=== PATIENT | female | born 1955 | race Caucasian/White ===

== ENCOUNTER 2016-10-21 16:24 | Emergency (ER) | payer OTHER ==
[~2016-10-21] VITALS: Ht 157.5 cm; Wt 54.9 kg
[2016-10-21] MEDS ORDERED: traMADol 50mg tab ORAL ONE (17:00)
[2016-10-21 17:34] VITALS: BP 113/60
[2016-10-21] MEDS ORDERED: ACETAMINOPHEN-1 EAC1 ORAL (18:49)
[2016-10-21 19:14] VITALS: BP 111/63
[2016-10-21 19:15] VITALS: BP 111/63
--- NOTE | 2016-10-21 21:46 | Emergency Room Report ---
History of Present Illness General Chief Complaint: Multiple Trauma/Fall Source: Medical Record, Caregiver Present Illness HPI The patient is a 61-year-old female with a history of developmental delay and squamous cell carcinoma presenting for right-sided rib pain and right hip pain after slipping and falling today. Pain is a 10 out of 10 dull ache and does not radiate. Worse with movement and touch. She did not lose consciousness or hit her head. She denies any other symptoms including dizziness, blurred vision , chest pain, shortness of breath, fatigue, hemoptysis, abdominal pain, numbness or tingling Allergies: Coded Allergies: No Known Allergies (Unverified , 10/21/16) Patient History Past Medical History: see triage record Pertinent Family History: none Last Menstrual Period: na Reviewed Nursing Documentation: PMH: Agreed, PSxH: Agreed Nursing Documentation-PMH Past Medical History: No History, Except For Hx Cancer: Yes - squamous cell Hx Gastrointestinal Problems: Yes - gerd History Of Psychiatric Problem: Yes - schizoaffective, depression, mental delay Review of Systems All Other Systems: limited Physical Exam Vital Signs Date Time Temp Pulse Resp B/P Pulse Ox O2 Delivery O2 Flow Rate FiO2 10/21/16 16:36 97.9 71 18 113/60 95 Room Air Sp02 EP Interpretation: reviewed, normal General Appearance: no apparent distress, alert, GCS 15, non-toxic Head: normocephalic, atraumatic Eyes: bilateral eye PERRL, bilateral eye normal inspection ENT: hearing grossly normal, normal pharynx, no angioedema, normal voice Neck: full range of motion, no bony tend, supple/symm/no masses Respiratory: lungs clear, normal breath sounds, no accessory muscle use, no wheezing, speaking full sentences Gastrointestinal: normal bowel sounds, non tender, soft, non-distended, no guarding, no rebound Musculoskeletal: other - 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 Mcnulty is my supervising physician. Patient management was discussed with my supervising physician Diagnostic Impression: Primary Impression: Contusion of hip, right Additional Impression: Contusion of rib on right side Qualified Codes: S20.211A - Contusion of right front wall of thorax, initial encounter ER Course The patient is a 61-year-old female presenting with right rib pain and right pelvic pain after falling Ddx considered include but not limited to sprain/strain, fracture, contusion, pneumothorax, among others PE: head is NC/AT NAD There is tenderness to palpation over the right lateral thoracic ribs. No flail chest. Lungs are clear to auscultation. No ecchymosis There is tenderness to palpation over the right lateral pelvis. Pelvis is stable. Full active range of motion of the right hip. X-ray of the right ribs is unremarkable CT scan of the pelvis is unremarkable The patient is given pain medications and will be discharged. ER precautions are given Other X-Ray Diagnostic Results Other X-Ray Diagnostic Results : X-Ray ordered: R rib pain # of Views/Limited Vs Complete: 4 View, Complete Indication: Pain EP Interpretation: Yes Interpretation: no dislocation, no soft tissue swelling, no fractures Impression: No acute disease Interpreting ER Provider: Dr. Pricila REA Scribe Text I am acting as scribe for my supervising physician. My supervising physician's interpretation of the R rib xrays are there is no fracture, consolidation, no effusion, no acute cardiopulmonary disease, no pneumothorax CT/MRI/US Diagnostic Results CT/MRI/US Diagnostic Results : Imaging Test Ordered: CT pelvis Impression Unremarkable Last Vital Signs Date Time Temp Pulse Resp B/P Pulse Ox O2 Delivery O2 Flow Rate FiO2 10/21/16 19:15 97.9 70 18 111/63 98 Room Air Status: improved Disposition: HOME, SELF-CARE Condition: Improved Scripts Acetaminophen With Codeine (T#3) (TYLENOL #3 TAB*) Y Tab 1 TAB ORAL Q6HR Y for For Pain, #12 TAB Prov: ROSARIO WARREN 10/21/16 Referrals: [facility],REFERRING (PCP) Patient Instructions: Hip Pain, Rib Contusion Additional Instructions: I discussed my findings with the patient. All questions and concerns have been answered. Treatment and medication compliance have been addressed. I advised the patient that they need to follow up with PMD in 3-5 days. Return to ED if pain remains or worsens, numbness or tingling occurs, new rash is noticed, fever is noticed, or if needed for any reason. Patient verbalized understanding of discharge instructions. ROSARIO WARREN Oct 21, 2016 21:46
--- NOTE | 2016-10-22 09:53 | Diagnostic Imaging Report ---
Indication: Pelvic pain and trauma Technique: Continuous helical transaxial imaging of the pelvis was obtained from the iliac crest to the pubic symphysis. Coronal 2-D reformats were also obtained. Study obtained in a Siemens sensation [address] Intravenous non-ionic contrast was administered. Total Dose length Product (DLP): [address] Dose Index Volume (CTDIvol): 11.1, .25mGy Comparison: None Findings: No definite fractures identified. No malalignment seen. There is moderate atrophy of all 3 of the right gluteal muscles. This is not associated with atrophy of other muscles in the right side. Please correlate clinically. There is moderate fecal retention with distention of the rectum noted. There is no pelvic free fluid. Uterus is noted. The bladder is unremarkable. Impression: No acute fracture identified. No acute injury seen. Fatty atrophy of the right gluteus muscles. Moderate fecal retention Dr. Navarro has communicated the preliminary results to the Emergency Department. There are no significant discrepancies. The CT scanner at [facility] is accredited by the [employer] and the scans are performed using dose optimization techniques as appropriate to a performed exam including Automatic Exposure control.
--- NOTE | 2016-10-22 11:50 | Diagnostic Imaging Report ---
Indication: Right-sided chest pain Comparison: None Findings: Right rib series performed. There are old healed fractures involving some of the rib. There is no acute fracture seen. There is no pneumothorax or evidence of pleural effusion. Bones are osteopenic. There are surgical clips in the right axilla. Impression: No acute fracture identified.
== END 2016-10-21 19:20 | disposition home or self-care (01) ==
LOC: EMR 16:53
DX: S70.01XA Contusion of right hip, initial encounter (principal); S20.211A Contusion of right front wall of thorax, initial encounter; W01.0XXA Fall on same level from slipping, tripping and stumbling without subsequent striking against object, initial encounter; Y92.89 Other specified places as the place of occurrence of the external cause; Z85.828 Personal history of other malignant neoplasm of skin; K21.9 Gastro-esophageal reflux disease without esophagitis; F20.9 Schizophrenia, unspecified; F32.9 Major depressive disorder, single episode, unspecified
CPT/HCPCS: 72192; 99284

== ENCOUNTER 2016-11-10 11:40 | Emergency (ER) | payer OTHER ==
[~2016-11-10] VITALS: Ht 152.4 cm; Wt 53.5 kg
[~2016-11-10 11:40] MED LIST: ACETAMINOPHEN-1 EAC1 ORAL
[2016-11-10 11:57] VITALS: BP 127/73
[2016-11-10] MEDS ORDERED: ACETAMINOPHEN-1 EAC1 ORAL (13:47)
--- NOTE | 2016-11-10 13:54 | Diagnostic Imaging Report ---
Indications: Back pain Technique: Spiral acquisitions obtained through the lumbar spine. Multiplanar reconstructions were generated. No IV contrast utilized. Total dose length product 321 mGycm. CTDIvol(s) 11 mGy. Dose reduction achieved using automated exposure control Comparison: None Findings: There is wedge/vertebral plana compression fracture deformity of the L1 vertebral body, resulting in approximately 30% height loss anteriorly, mild height loss posteriorly, no retropulsion. There is also some depression of the superior endplate and slight elevation of the inferior endplate. There is a superior endplate and slight anterior wedge compression fracture deformity of the T12 vertebral body. There is focal right lateral superior endplate depression of the L4 vertebral body. The remainder other vertebral body heights are preserved. No other evidence of acute fracture or dislocation. The bony alignment is normal. The disc spaces are preserved. At L2-3, there is circumferential annular bulge ridge results in minimal narrowing of the spinal canal. The neural foramina are preserved. At L3-4, mild circumferential annular bulge and ligament of flavum hypertrophy results in borderline narrowing of the spinal canal. At L4-5, there is circumferential annular bulge which results in borderline narrowing of the spinal canal, possible minimal compromise of the bilateral neural foramina. At L5-S1, there is circumferential annular bulge which does not result in any significant narrowing the spinal canal. Bony hypertrophy and the bulging disc may result in mild narrowing of the left neural foramen. At the remaining disc levels, no significant disc bulge or protrusion, spinal stenosis, or neural foraminal stenosis. Impression: Age indeterminate compression fracture deformities of L1, T12, and minimally of L4. Consider MRI for better characterization evaluation for possible intervention if clinically indicated Mild degenerative changes, as detailed on a level by level basis above The CT scanner at [facility] is accredited by the [employer] and the scans are performed using protocols designed to limit radiation exposure to as low as reasonably achievable to attain images of sufficient resolution adequate for diagnostic evaluation.
[2016-11-10 13:57] VITALS: BP 122/71
[2016-11-10 13:59] VITALS: BP 122/71
--- NOTE | 2016-11-10 14:50 | Diagnostic Imaging Report ---
Indication: PAIN Technique: One view of the pelvis Comparison: CT scan of the pelvis dated 10/21/2016 Findings: No definite acute fractures. No dislocations. Joint spaces are preserved Impression: No definite acute process Note, however, that in elderly osteopenic patients, nondisplaced hip or pelvic fractures can easily be occult. Consider cross-sectional imaging if there is high clinical suspicion
--- NOTE | 2016-11-10 15:15 | Emergency Room Report ---
History of Present Illness General Chief Complaint: Pain Source: Medical Record, Caregiver Present Illness HPI Patient is a 61-year-old female who presented after increased difficulty with low back pain and right hip pain. The patient gradual onset of symptoms. Patient noted have prior history of psychiatric disease. She was also noted to have previous the right upper extremity the patient's. Patient had gradual onset of symptoms. She reported having pain from the right hip which radiated down her leg. She had not been vomiting. She denied abdominal pain or chest pain. Allergies: Coded Allergies: No Known Allergies (Unverified , 10/21/16) Patient History Past Medical History: see triage record Reviewed Nursing Documentation: PMH: Agreed, PSxH: Agreed Nursing Documentation-PMH Past Medical History: No History, Except For Hx Cancer: Yes - squamous cell Hx Gastrointestinal Problems: Yes - gerd Review of Systems All Other Systems: negative except mentioned in HPI Physical Exam Vital Signs Date Time Temp Pulse Resp B/P Pulse Ox O2 Delivery O2 Flow Rate FiO2 11/10/16 11:43 97.3 90 16 127/73 97 Room Air Sp02 EP Interpretation: reviewed, normal General Appearance: normal inspection, well appearing, no apparent distress, alert, GCS 15, non-toxic Head: atraumatic ENT: normal ENT inspection, hearing grossly normal, normal voice Neck: normal inspection, full range of motion, supple, no bony tend Respiratory: normal inspection, lungs clear, normal breath sounds, no respiratory distress, no retraction, no wheezing Cardiovascular #1: regular rate, rhythm, no edema Gastrointestinal: normal inspection, normal bowel sounds, non tender, soft, no guarding, no hernia Genitourinary: no CVA tenderness Musculoskeletal: normal inspection, back normal, normal range of motion Neurologic: normal inspection, alert, responsive, speech normal Psychiatric: normal inspection, judgement/insight normal, mood/affect normal Skin: normal inspection, normal color, no rash Medical Decision Making Diagnostic Impression: Primary Impression: Lumbar compression fracture ER Course Patient presented for back pain. Differential diagnosis included but was not limited to herniated disc, cauda equina syndrome, abdominal aortic aneurysm, perforated ulcer, spinal epidural abscess, spinal stenosis, lumbar fracture, metastatic lesion, pyelonephritis. Because of complexity of patient's case laboratory testing and imaging studies were ordered. A CT imaging read by radiology showed compression fracture of the T12 vertebral body as well as L4 vertebral body. Patient was given prescription for pain medications. The patient is advised to follow up with primary care doctor in 1- 2 days. Patient is advised to return if any worsening condition or if any changes in status that are concerning. Last Vital Signs Date Time Temp Pulse Resp B/P Pulse Ox O2 Delivery O2 Flow Rate FiO2 11/10/16 13:59 97.3 81 16 122/71 97 Room Air Status: improved Disposition: HOME, SELF-CARE Condition: Stable Scripts Acetaminophen With Codeine (T#3) (TYLENOL #3 TAB*) Y Tab 1 TAB ORAL Q8H Y for For Pain, #20 TAB Prov: Adolph Carolina 11/10/16 Patient Instructions: Lumbar Fracture Adolph Carolina Nov 10, 2016 15:15
== END 2016-11-10 14:01 | disposition home or self-care (01) ==
LOC: EMR 12:32
DX: M48.56XA Collapsed vertebra, not elsewhere classified, lumbar region, initial encounter for fracture (principal); M48.54XA Collapsed vertebra, not elsewhere classified, thoracic region, initial encounter for fracture; M25.551 Pain in right hip; Z86.59 Personal history of other mental and behavioral disorders; K21.9 Gastro-esophageal reflux disease without esophagitis; Z85.828 Personal history of other malignant neoplasm of skin
CPT/HCPCS: 72131; 72170; 99283

== ENCOUNTER → 2017-09-22 | Emergency (ER) | payer OTHER ==
[~2017-09-22] VITALS: Ht 154.9 cm; Wt 50.8 kg
[~2017-09-22] MED LIST changes: +Bacitracin Oint UD TOPIC ONE; +Lidocaine 1% 10mg/ml/Epi 0.005mg/ml 30ml vial INJ ONE; +Tetanus/Diptheria/Pertussis Vaccine 0.5ml Syr IM ONE
[2017-09-22 11:04] VITALS: BP 90/58
--- NOTE | 2017-09-22 11:36 | Emergency Room Report ---
History of Present Illness General Chief Complaint: Laceration Present Illness HPI The patient is a 62-year-old female who presented after increased scalp pain. Patient had recently been noted to have arm surgery. Patient had fallen onto some stairs. She laceration to the back of her head. Injury occurred last night approximately 6 hours prior to arrival. Patient denied severe pain. She is currently awake and alert.The patient denied recent tetanus vaccine. Allergies: Coded Allergies: No Known Allergies (Unverified , 10/21/16) Patient History Past Medical History: see triage record Reviewed Nursing Documentation: PMH: Agreed; PSxH: Agreed Nursing Documentation-PMH Hx Cancer: Yes - squamous cell Hx Gastrointestinal Problems: Yes - gerd Hx Dialysis: No - RT ABOVE ELBOW AMPUPTATION 09/07/17 Review of Systems All Other Systems: negative except mentioned in HPI Physical Exam Vital Signs Date Time Temp Pulse Resp B/P (MAP) Pulse Ox O2 Delivery O2 Flow Rate FiO2 09/22/17 11:04 98.0 86 22 90/58 96 Room Air 98.1 General Appearance: well appearing, no apparent distress, alert, GCS 15, thin, Chronically Ill Head: normocephalic, atraumatic ENT: hearing grossly normal, normal voice Neck: full range of motion, supple Respiratory: no respiratory distress, speaking full sentences Cardiovascular #1: normal inspection, regular rate, rhythm Gastrointestinal: normal inspection Musculoskeletal: normal range of motion, no calf tenderness Neurologic: normal inspection, alert, oriented x3, normal gait Psychiatric: mood/affect normal Skin: no rash, laceration - occiput 2cm linear Procedures Laceration/Wound Repair Laceration/Wound Repair : Wound Location: head Wound's Depth, Shape: superficial Wound Length (cm): 2 Wound Explored: clean Irrigated w/ Saline (ccs): 60 Anesthesia: Lidocaine w/ Epi Volume Anesthetic (ccs): 3 Wound Debrided: minimal Wound Repaired With: damaso - 2 Patient Tolerated: Well Complications: None Medical Decision Making Diagnostic Impression: Primary Impression: Scalp laceration ER Course Patient presented for laceration. Differential diagnoses included head injury, skull fracture, foreign body, nerve injury, arterial injury among others. Patient has a benign exam and does not appear to require any further laboratory testing at this time. CT the head was ordered due to patient's recent trauma.The patient appears to be stable for outpatient observation.The patient is advised to follow up with primary care doctor in 1-2 days. Patient is advised to return if any worsening condition or if any changes in status that are concerning. This report is dictated with [employer] visualization developer software which may occasionally lead to discrepancies related to use of this software. Last Vital Signs Date Time Temp Pulse Resp B/P (MAP) Pulse Ox O2 Delivery O2 Flow Rate FiO2 09/22/17 11:04 98.0 86 22 90/58 96 Room Air 98.1 Status: improved Disposition: HOME, SELF-CARE Condition: Stable Adolph Carolina MD Sep 22, 2017 11:36
--- NOTE | 2017-09-22 12:10 | Diagnostic Imaging Report ---
Indications: 6 head pain, status post fall 6 hours earlier, scalp laceration Technique: Spiral acquisitions obtained through the brain. Angled axial and coronal 5 x 5 mm slices were reconstructed. Total dose length product 1326.17 mGycm. CTDI vol(s) 70.38 mGy. Dose reduction achieved using automated exposure control Comparison: None. Findings: A few small gas bubbles are seen in the right posterior parietal scalp. No underlying calvarial injury. There is ethmoid sinus disease. The orbits are unremarkable. No acute intracranial hemorrhage or edema. No mass effect nor midline shift. Normal size ventricles and extra axial CSF spaces. Old small lacunar infarcts are seen in the right basal ganglia. There is minimal periventricular deep white matter low-attenuation, consistent with chronic ischemic change. Impression: Evidence of right scalp laceration, consistent with stated clinical history Negative for acute intracranial bleed or mass effect Minimal age-related changes, as described Old small right basal ganglia lacunar infarcts Ethmoid sinus disease The CT scanner at [facility] is accredited by the [employer] and the scans are performed using protocols designed to limit radiation exposure to as low as reasonably achievable to attain images of sufficient resolution adequate for diagnostic evaluation.
[2017-09-22 12:32] VITALS: BP 129/59
== END | disposition home or self-care (01) ==
LOC: EMR 12:42
DX: S01.01XA Laceration without foreign body of scalp, initial encounter (principal); W10.9XXA Fall (on) (from) unspecified stairs and steps, initial encounter; Y92.9 Unspecified place or not applicable; Z23 Encounter for immunization; R51 Headache
CPT/HCPCS: 12001; 70450; 90471; 90715; 99282; Z7502

== ENCOUNTER 2018-12-01 15:32 | Emergency (ER) | payer OTHER ==
[~2018-12-01] VITALS: Ht 154.9 cm; Wt 46.7 kg
[~2018-12-01 15:32] MED LIST changes: -Bacitracin Oint UD TOPIC ONE; -Lidocaine 1% 10mg/ml/Epi 0.005mg/ml 30ml vial INJ ONE; -Tetanus/Diptheria/Pertussis Vaccine 0.5ml Syr IM ONE
[2018-12-01 15:40] VITALS: BP 98/69
--- NOTE | 2018-12-01 16:20 | NUR ---
ED Nurse Note: Patient brought in by caregiver due to right 2nd toe injury since last night. Patient hit it against the dresser. Redness, swelling that radiating to right foot noted. Patient ambulated to the room with steady gait. Applied ice pack.
--- NOTE | 2018-12-01 16:28 | Emergency Room Report ---
History of Present Illness General Chief Complaint: Lower Extremity Injury Source: Medical Record (Yulisa Ronquillo) Present Illness HPI 63-year-old female with history of an unknown psychiatric disorder here with caregiver complaining of pain in right second toe starting today. Patient reports that she headed against a curb and rating pain 10 out of 10 without radiation. Denies tingling numbness. Has full range of motion of the toe. The till looks slightly erythematous and not tender to palpation. No other injuries noted. Denies falling on her head and having a head injury. Denies loss of consciousness. Patient is currently on [place] and tramadol for her chronic pain. Denies chest pain, shortness of breath, palpitation, and other associated symptoms. (Yulisa Ronquillo) Allergies: Coded Allergies: No Known Allergies (Unverified , 10/21/16) Patient History Past Medical History: see triage record Past Surgical History: unable to obtain Pertinent Family History: none Now: No Immunizations: UTD Reviewed Nursing Documentation: PMH: Agreed; PSxH: Agreed (Yulisa Ronquillo) Nursing Documentation-PMH Past Medical History: No History, Except For Hx Cancer: Yes - squamous cell Hx Gastrointestinal Problems: Yes - gerd Hx Dialysis: No - RT ABOVE ELBOW AMPUPTATION 09/07/17 (Yulisa Ronquillo) Review of Systems All Other Systems: negative except mentioned in HPI (Yuilsa Ronquillo) Physical Exam Vital Signs Date Time Temp Pulse Resp B/P (MAP) Pulse Ox O2 Delivery O2 Flow Rate FiO2 12/01/18 15:40 97.5 106 18 98/69 (79) 99 Room Air Sp02 EP Interpretation: reviewed, normal General Appearance: no apparent distress, alert, GCS 15, non-toxic Head: normocephalic, atraumatic Eyes: bilateral eye normal inspection, bilateral eye PERRL ENT: hearing grossly normal, normal pharynx, no angioedema, normal voice Neck: full range of motion, supple/symm/no masses Respiratory: chest non-tender, lungs clear, normal breath sounds, no rhonchi, speaking full sentences Cardiovascular #1: regular rate, rhythm, no edema, no murmur Cardiovascular #2: 2+ dorsalis pedis (R), 2+ dorsalis pedis (L) Gastrointestinal: normal bowel sounds, non tender, soft, non-distended, no guarding, no rebound Rectal: deferred Genitourinary: normal inspection, no CVA tenderness Musculoskeletal: back normal, gait/station normal, normal range of motion, non- tender, no calf tenderness, swelling - Right second toe Neurologic: alert, oriented x3, responsive, motor strength/tone normal, sensory intact, speech normal Psychiatric: judgement/insight normal, memory normal, mood/affect normal, no suicidal/homicidal ideation Skin: no rash Lymphatic: no adenopathy (Yulisa Ronquillo) Procedures Splinting Splinting : Location: Right second toe Pre-Made Type: Postoperative shoe Pre-Proc Neuro Vasc Exam: normal Post-Proc Neuro Vasc Exam: normal Patient Tolerated: Well Complications: None Progress audi taped and postoperative shoe given (Yulisa Ronquillo) Medical Decision Making PA Attestation All diagnoses and treatment plans were reviewed and discussed with my supervising physician Dr. Chávez (Yulisa Ronquillo) Diagnostic Impression: Primary Impression: Toe contusion ER Course 63-year-old female with history of an unknown psychiatric disorder here with caregiver complaining of pain in right second toe starting today. Patient reports that she headed against a curb and rating pain 10 out of 10 without radiation. Denies tingling numbness. Has full range of motion of the toe. The till looks slightly erythematous and not tender to palpation. No other injuries noted. Denies falling on her head and having a head injury. Denies loss of consciousness. Patient is currently on [place] and tramadol for her chronic pain. Denies chest pain, shortness of breath, palpitation, and other associated symptoms. Ddx considered but are not limited to: Toe fracture, toe sprain, toe contusion, toe strain Vital signs: are WNL, pt. is afebrile H&PE are most consistent with: Toe contusion ORDERS: Toe x-ray, ibuprofen ED INTERVENTIONS: Audi tape and postoperative shoe DISCHARGE: At this time pt. is stable for d/c to home. Will provide printed patient care instructions, and any necessary prescriptions. Care plan and follow up instructions have been discussed with the patient prior to discharge. Alternate between icing and heating the affected area follow-up with your primary care provider avoid strenuous physical activity take medication as directed (Yulisa Ronquillo) Other X-Ray Diagnostic Results Other X-Ray Diagnostic Results : X-Ray ordered: Right toe # of Views/Limited Vs Complete: 3 View Indication: Pain EP Interpretation: Yes PA Xray: Interpretation reviewed, by supervising MD, and agrees with findings. Interpretation: no dislocation, no soft tissue swelling, no fractures Impression: No acute disease Electronically Signed by: Yulisa Holland PA-C (Yulisa Ronquillo) Other X-Ray Diagnostic Results : Electronically Signed by: Jessica Wright documentation of Xray reviewed by me and is accurate, Joshua Chávez MD (Joshua Chávez MD) Last Vital Signs Date Time Temp Pulse Resp B/P (MAP) Pulse Ox O2 Delivery O2 Flow Rate FiO2 12/01/18 15:40 97.5 106 18 98/69 (79) 99 Room Air (Yulisa Ronquillo) Disposition: HOME, SELF-CARE Condition: Stable Scripts Ibuprofen* (MOTRIN*) 600 Mg Tablet 600 MG ORAL Q8H PRN for For Pain, #30 TAB 0 Refills Prov: Yulisa Ronquillo 12/01/18 Patient Instructions: Foot Contusion Additional Instructions: Take medication as directed follow-up with a primary care provider if worsening symptoms return to the emergency room Yulisa Ronquillo Dec 01, 2018 16:28 Joshua Chávez MD Dec 02, 2018 04:48
[2018-12-01] MEDS ORDERED: IBUPROFEN600 MG ORAL (16:29)
--- NOTE | 2018-12-01 16:33 | Diagnostic Imaging Report ---
Indication: Right toe pain Comparison: None Findings: 3 views of the right forefoot obtained. There is a fracture that is oriented transversely involving the distal flange of the second toe. Soft tissue swelling noted. IMPRESSION: Acute fracture of the second distal phalange
--- NOTE | 2018-12-01 16:40 | NUR ---
ED Nurse Note: Hermilo tape and ortho shoe applied by ILEANA Noble.
--- NOTE | 2018-12-01 16:57 | NUR ---
ED Nurse Note: Patient is being discharged from medical care. D/C instruction/prescription given to patient and Daisy staff from [facility]. ID band removed. All questions were answered. Patient ambulated out with steady gait.
== END 2018-12-01 16:57 | disposition home or self-care (01) ==
LOC: EMR 15:50
DX: S90.121A Contusion of right lesser toe(s) without damage to nail, initial encounter (principal); W22.03XA Walked into furniture, initial encounter; Y92.009 Unspecified place in unspecified non-institutional (private) residence as the place of occurrence of the external cause
CPT/HCPCS: 29515; 99283